=== PATIENT | female | born 1980 ===

== ENCOUNTER 2018-10-09 09:09 | Inpatient (IN) | payer BC ==
[~2018-10-09] VITALS: Ht 160 cm; Wt 70.8 kg
[2018-10-09] MEDS ORDERED: DINOPROSTONE 10 MG SUPP VG ONE (09:45)
[2018-10-09] MEDS ORDERED: TERBUTALINE SULFATE 1 MG/ML VIAL SUBCUT ONE (09:45)
[2018-10-09] MEDS: LR 1,000 ML IV SCH (10:00)
[2018-10-09 10:08] LABS: BASOPHILS % (AUTO) 0.6 % (0.0-2.0); EOSINOPHILS % (AUTO) 0.7 % (0.0-4.0); HEMATOCRIT 32.3 % (36-48); HEMOGLOBIN 10.6 g/dL (12.0-16.0); LYMPHOCYTES # (AUTO) 1.2 K/uL (1.0-5.5); LYMPHOCYTES % (AUTO) 23.3 % (20.5-51.5); MEAN CORPUSCULAR HEMOGLOBIN 28 pg (27-31); MEAN CORPUSCULAR HGB CONC 33 % (32-36); MEAN CORPUSCULAR VOLUME 85 fL (79.0-98.0); MONOCYTES # (AUTO) 0.5 K/uL (0.0-1.0); MONOCYTES % (AUTO) 9.1 % (1.7-9.3); NEUTROPHILS # (AUTO) 3.3 K/uL (1.8-7.7); NEUTROPHILS % (AUTO) 66.3 % (40.0-70.0); PLATELET COUNT (AUTO) 192 K/uL (130-430); RED BLOOD CELL COUNT(AUTO) 3.82 MIL/uL (4.2-6.2)
[2018-10-09 10:09] LABS: BILIRUBIN,URINE NEGATIVE (NEGATIVE); CLARITY/URINE SL HAZY (CLEAR); COLOR,URINE YELLOW (YELLOW); GLUCOSE,URINE NEGATIVE (NEGATIVE); KETONES,URINE NEGATIVE (NEGATIVE); LEUKOCYTE ESTERASE ,URINE NEGATIVE (NEGATIVE); NITRITE, URINE NEGATIVE (NEGATIVE); PROTEIN URINE NEGATIVE (NEGATIVE); UROBILINOGEN,URINE 0.2 (0.2-1.0)
[2018-10-09 10:11] LABS: BLOOD, URINE TRACE (NEGATIVE)
[2018-10-09 10:26] LABS: ALBUMIN 2.5 g/dL (3.4-4.8); CALCIUM 8.5 mg/dL (8.4-11.0); CREATININE 0.69 mg/dL (0.55-1.30); TOTAL BILIRUBIN 0.2 mg/dL (0.0-1.0)
[2018-10-09 10:45] LABS: BACTERIA,URINE MODERATE /HPF (None Seen)
[2018-10-09 13:46] VITALS: BP_SYST 142
[2018-10-09] MEDS: NALBUPHINE HCL 10 MG/ML AMP IVP PRN ×2 (20:24→23:41)
[2018-10-10] MEDS ORDERED: ROPIVACAINE 0.2% 100 ML ONE ×2 (00:39→07:40)
[2018-10-10] MEDS ORDERED: fentaNYL CITRATE/PF 100 MCG/2 ML AMP ONE ×2 (00:39→15:05)
[2018-10-10] MEDS: LR 1,000 ML IV SCH ×2 (00:48→05:42)
[2018-10-10] MEDS ORDERED: DIPHENHYDRAMINE INJ 50 MG/ML VIAL IVP PRN ×2 (01:00→15:30)
[2018-10-10] MEDS ORDERED: ONDANSETRON HCL 4 MG/2 ML VIAL IVP PRN ×2 (01:00→15:30)
[2018-10-10] MEDS ORDERED: DINOPROSTONE 10 MG SUPP VG ONE (01:00)
[2018-10-10] MEDS ORDERED: AMPICILLIN SODIUM 2 GM in NS 100 ML IV ONE (06:00)
[2018-10-10] MEDS ORDERED: AMPICILLIN SODIUM 2 GM VIAL ONE (06:14)
[2018-10-10] MEDS ORDERED: OXYTOCIN/0.9 % SODIUM CHLORIDE 1,000 ML IV SCH (06:20)
[2018-10-10] MEDS ORDERED: LR 500 ML IV ONE (09:20)
[2018-10-10] MEDS ORDERED: FENT2mCg/mL-ROPIVA0.2%/NS EPID 100 ML EP SCH (09:30)
[2018-10-10] MEDS ORDERED: AMPICILLIN SODIUM 1 GM in NS 50 ML IV SCH (10:00)
[2018-10-10] MEDS: IBUPROFEN 600 MG TABLET PO SCH (12:15)
[2018-10-10] MEDS ORDERED: CEFAZOLIN 2 GM IVPB PREMIX 50 ML IV ONE ×2 (13:30→15:05)
[2018-10-10] MEDS ORDERED: OXYTOCIN/0.9 % SODIUM CHLORIDE 1,000 ML IV ONE ×2 (14:00→14:39)
[2018-10-10] MEDS ORDERED: LR 1,000 ML IV SCH ×2 (14:39→15:25)
[2018-10-10] MEDS ORDERED: OXYCODONE/ACETAMINOPHEN 5-325 TABLET PO PRN (14:45)
[2018-10-10] MEDS ORDERED: MEASLES,MUMPS&RUBELLA VACC/PF 12500 UNIT/0.5 ML VIAL SUBQ PRN (14:45)
[2018-10-10] MEDS ORDERED: ANUSOL 1 EA SUPP.RECT (PREPARATION H) RC PRN (14:45)
[2018-10-10] MEDS ORDERED: LANOLIN 7 GM OINT. TP PRN (14:45)
[2018-10-10] MEDS ORDERED: BISACODYL 10 MG/SUPPOSITORY RC PRN (14:45)
[2018-10-10] MEDS ORDERED: SENNOSIDES/DOCUSATE SODIUM 1 TAB TABLET(SENOKOT-S) PO PRN (14:45)
[2018-10-10] MEDS ORDERED: RHO(D) IMMUNE GLOBULIN/MALTOSE 1500 UNITS/1.3 ML (WINHRO) IM PRN (14:45)
[2018-10-10] MEDS ORDERED: DIPH-TET-PERTUS Vaccine 0.5 ML VIAL (ADACEL) I.M. PRN (14:45)
[2018-10-10] MEDS ORDERED: IBUPROFEN 600 MG TABLET PO ONE (15:00)
[2018-10-10 15:05] VITALS: BP_SYST 132
[2018-10-10] MEDS ORDERED: ONDANSETRON HCL 4 MG/2 ML VIAL ONE (15:05)
[2018-10-10] MEDS ORDERED: OXYTOCIN/0.9 % SODIUM CHLORIDE 20 UNITS/1,000 ML BAG IV ONE (15:05)
[2018-10-10] MEDS ORDERED: LR 1,000 ML IV.SOLN IV ONE (15:05)
[2018-10-10] MEDS ORDERED: LIDOCAINE 2%, 20 ML MDV ONE (15:05)
[2018-10-10] MEDS ORDERED: MORPHINE SULFATE 10MG/10ML PF AMP ONE (15:05)
[2018-10-10] MEDS ORDERED: OXYTOCIN 10 UNIT/ML VIAL ONE (15:05)
[2018-10-10] MEDS ORDERED: ALFENTANIL HCL 1000 MCG/2 ML AMP ONE (15:05)
[2018-10-10] MEDS ORDERED: SODIUM BICARBONATE 4% (NEUT) 5 ML VIAL ONE (15:05)
[2018-10-10] MEDS ORDERED: NALOXONE HCL 1 MG in NACL 0.9% 1,000 ML IV PRN ×4 (15:25)
[2018-10-10] MEDS ORDERED: DIPHENHYDRAMINE HCL 50 MG CAPSULE PO PRN (15:30)
[2018-10-10] MEDS ORDERED: HYDROmorphone 1 MG INJ. 1 MG/ML AMPUL IVP PRN (15:30)
[2018-10-10] MEDS ORDERED: HYDROmorphone 2 MG/ML VIAL IVP PRN ×2 (15:30)
[2018-10-10] MEDS ORDERED: MEPERIDINE HCL/PF 25 MG/ML DISP.SYRIN IVP PRN ×2 (15:30)
[2018-10-10] MEDS ORDERED: NALOXONE HCL 0.4 MG/ML AMP (NARCAN) IVP PRN ×3 (15:30)
[2018-10-10] MEDS ORDERED: TEMAZEPAM 15 MG CAPSULE PO PRN (21:00)
[2018-10-11] MEDS: DOCUSATE SODIUM 100 MG CAPSULE PO PRN ×2 (06:29→23:45)
[2018-10-11] MEDS: IBUPROFEN 600 MG TABLET PO SCH ×3 (06:29→23:45)
[2018-10-11] MEDS: OXYCODONE/ACETAMINOPHEN 5-325 TABLET PO PRN ×2 (06:30→12:15)
[2018-10-11] MEDS: SIMETHICONE 80 MG TAB.CHEW PO PRN ×2 (06:30→17:58)
[2018-10-11 06:33] LABS: BASOPHILS % (AUTO) 0.3 % (0.0-2.0); EOSINOPHILS # (AUTO) 0.1 K/uL (0.0-0.4); EOSINOPHILS % (AUTO) 0.4 % (0.0-4.0); HEMATOCRIT 23.2 % (36-48); HEMOGLOBIN 7.5 g/dL (12.0-16.0); LYMPHOCYTES # (AUTO) 1.8 K/uL (1.0-5.5); LYMPHOCYTES % (AUTO) 13.5 % (20.5-51.5); MEAN CORPUSCULAR HEMOGLOBIN 28 pg (27-31); MEAN CORPUSCULAR HGB CONC 32 % (32-36); MEAN CORPUSCULAR VOLUME 85 fL (79.0-98.0); MONOCYTES # (AUTO) 0.9 K/uL (0.0-1.0); MONOCYTES % (AUTO) 6.7 % (1.7-9.3); NEUTROPHILS # (AUTO) 10.3 K/uL (1.8-7.7); NEUTROPHILS % (AUTO) 79.1 % (40.0-70.0); PLATELET COUNT (AUTO) 179 K/uL (130-430); RED BLOOD CELL COUNT(AUTO) 2.72 MIL/uL (4.2-6.2); RED CELL DISTRIBUTION WIDTH 15.2 % (9.0-15.0)
[2018-10-11] MEDS: ASCORBIC ACID PO SCH (17:59)
[2018-10-11] MEDS: FERROUS FUMARATE PO SCH (17:59)
[2018-10-12] MEDS: IBUPROFEN 600 MG TABLET PO SCH ×4 (06:01→23:23)
[2018-10-12] MEDS: OXYCODONE/ACETAMINOPHEN 5-325 TABLET PO PRN (06:07)
[2018-10-12] MEDS: DOCUSATE SODIUM 100 MG CAPSULE PO PRN (12:05)
[2018-10-12] MEDS: FERROUS FUMARATE PO SCH (17:26)
[2018-10-12] MEDS: ASCORBIC ACID PO SCH (17:26)
[2018-10-13] MEDS: DOCUSATE SODIUM 100 MG CAPSULE PO PRN (05:56)
[2018-10-13] MEDS: IBUPROFEN 600 MG TABLET PO SCH ×2 (05:57→12:16)
== END 2018-10-13 12:00 | disposition home or self-care (01) | DRG 788 ==
LOC: SPU 09:09
PROVIDERS: ADMIT Obstetrics & Gynecology; ATTEND Obstetrics & Gynecology
PROC: 3E0P7VZ Introduction of Hormone into Female Reproductive, Via Natural or Artificial Opening (ICD-10-PCS; 2018-10-10)
PROC: 10D00Z1 Extraction of Products of Conception, Low, Open Approach (ICD-10-PCS; principal; 2018-10-10 13:30)
DX: O75.81 Maternal exhaustion complicating labor and delivery (principal); O99.824 Streptococcus B carrier state complicating childbirth; O13.4 Gestational [pregnancy-induced] hypertension without significant proteinuria, complicating childbirth; O32.4XX0 Maternal care for high head at term, not applicable or unspecified; O32.8XX0 Maternal care for other malpresentation of fetus, not applicable or unspecified; O75.89 Other specified complications of labor and delivery; E83.119 Hemochromatosis, unspecified; Z3A.39 39 weeks gestation of pregnancy; Z37.0 Single live birth
CPT/HCPCS: 36415; 80053; 81000-TC; 85025; 86592; 86886; 86900; 86901; 94760; J0290; J0690; J2001; J2274; J2300; J2310; J2405; J2590; J2795; J3010; J3490; J7030; J7120